=== PATIENT | female | born 1950 | race Caucasian/White ===

== ENCOUNTER 2021-04-25 15:55 | Emergency (ER) | payer MEDICARE ==
[2021-04-25] MEDS ORDERED: HYDROCODON-ACE1 EAC4 PO (19:09)
== END 2021-04-25 19:00 | disposition home or self-care (01) ==
LOC: ER1 15:55
DX: S82.042A Displaced comminuted fracture of left patella, initial encounter for closed fracture (principal); F17.200 Nicotine dependence, unspecified, uncomplicated; E11.9 Type 2 diabetes mellitus without complications; I10 Essential (primary) hypertension; Z86.73 Personal history of transient ischemic attack (TIA), and cerebral infarction without residual deficits; W01.0XXA Fall on same level from slipping, tripping and stumbling without subsequent striking against object, initial encounter
CPT/HCPCS: 73564; 99283